=== PATIENT | male | born 1980 | race Hispanic/Latino ===

== ENCOUNTER 2017-03-17 16:01 | Emergency (ER) | payer MEDICAID, OTHER ==
[2017-03-17 16:07] VITALS: RESP 16; TEMP 98.2
--- NOTE | 2017-03-17 16:22 | ED PDOC ---
HPI: Psych/Substance Abuse Time Seen by Provider: 03/17/17 16:10 Chief Complaint (Nursing): Substance Abuse Chief Complaint (Provider): heroin use History Per: Patient History/Exam Limitations: no limitations Additional Complaint(s): 36yo male comes to the ED after taking heroin today. Patient states he fell asleep wherever he was found. Per EMS narcan was delivered intranasally. Patient has no medical complaints and requests to be discharged. Past Medical History Reviewed: Historical Data, Nursing Documentation, Vital Signs Vital Signs: Last Vital Signs Temp 98.2 F 03/17/17 16:03 Pulse 104 H 03/17/17 16:03 Resp 16 03/17/17 16:03 BP 123/89 03/17/17 16:03 Pulse Ox 100 03/17/17 16:03 - Medical History PMH: Denies: Diabetes, Hepatitis, HIV, HTN, Seizures, Sexually Transmitted Disease - Family History Family History: States: Unknown Family Hx - Living Arrangements Living Arrangements: With Family - Social History Drugs: Opiates - Home Medications Home Medications: Ambulatory Orders Medication Instructions Recorded Unobtainable [Unobtainable] 08/11/15 - Allergies Allergies/Adverse Reactions: Allergies Allergy/AdvReac Type Severity Reaction Status Date / Time shellfish derived Allergy RASH Verified 03/17/17 16:03 Review of Systems ROS Statement: Except As Marked, All Systems Reviewed And Found Negative Cardiovascular: Negative for: Chest Pain Respiratory: Negative for: Shortness of Breath Physical Exam - Reviewed Nursing Documentation Reviewed: Yes Vital Signs Reviewed: Yes - Physical Exam Appears: Positive for: Well, Non-toxic, No Acute Distress Head Exam: Positive for: ATRAUMATIC, NORMAL INSPECTION, NORMOCEPHALIC Skin: Positive for: Warm, Dry Eye Exam: Positive for: EOMI, Other (Pinpoint pupils <1mm bilaterally non reactive) Cardiovascular/Chest: Positive for: Regular Rate, Rhythm Respiratory: Positive for: Normal Breath Sounds. Negative for: Rales, Rhonchi, Wheezing Extremity: Positive for: Normal ROM Neurologic/Psych: Positive for: Gait (steady), Other ( awake, cooperative, ) - ECG O2 Sat by Pulse Oximetry: 100 (RA) Pulse Ox Interpretation: Normal Medical Decision Making Medical Decision Making: patient is awake, alert, cooperative. His gait is steady. Will d/c without further monitoring or workup Disposition - Clinical Impression Clinical Impression: Substance abuse - Patient ED Disposition Is Patient to be Admitted: No Doctor Will See Patient In The: Office Counseled Patient/Family Regarding: Diagnosis, Need For Followup - Disposition Referrals: Ramo Rivera Jr., MD [Medical Doctor] - Disposition: Routine/Home Disposition Time: 16:30 Condition: STABLE Instructions: Narcotic Abuse (ED) Print Language: [place] - POA Present On Arrival: None
[2017-03-17 16:48] VITALS: BP 132/77; PULSE 100; O2SAT 98
== END 2017-03-17 16:48 | disposition home or self-care (01) ==
LOC: H.ER 16:01
DX: F19.10 Other psychoactive substance abuse, uncomplicated (principal)

== ENCOUNTER 2017-06-08 09:35 | Observation (INO) | payer MEDICAID ==
[2017-06-08 09:42] VITALS: TEMP 96.7
[2017-06-08 09:43] VITALS: BMI 23.3
[2017-06-08] MEDS ORDERED: Sodium Chloride 0.9% 1,000 ML IV STA (10:31)
--- NOTE | 2017-06-08 10:34 | ED PDOC ---
HPI: Psych/Substance Abuse Time Seen by Provider: 06/08/17 09:46 Chief Complaint (Nursing): Substance Abuse Chief Complaint (Provider): Substance abuse History Per: Patient Additional Complaint(s): Pt is a 36 yo male, unknown PMH, presents to ED for possible substance abuse Past Medical History Reviewed: Nursing Documentation, Vital Signs Vital Signs: Last Vital Signs Temp 96.7 F L 06/08/17 09:41 Pulse 77 06/08/17 09:41 Resp 16 06/08/17 09:41 BP 108/68 06/08/17 09:41 Pulse Ox 97 06/08/17 09:41 - Medical History PMH: Denies: Diabetes, Hepatitis, HIV, HTN, Seizures, Sexually Transmitted Disease - Family History Family History: States: Unknown Family Hx - Immunization History Hx Tetanus Toxoid Vaccination: No Hx Influenza Vaccination: No Hx Pneumococcal Vaccination: No - Home Medications Home Medications: Ambulatory Orders Medication Instructions Recorded Unobtainable [Unobtainable] 08/11/15 No Known Home Med 04/13/16 - Allergies Allergies/Adverse Reactions: Allergies Allergy/AdvReac Type Severity Reaction Status Date / Time shellfish derived Allergy RASH Verified 03/17/17 16:03 SEAFOOD Allergy Uncoded 04/13/16 08:21 Review of Systems ROS Statement: Except As Marked, All Systems Reviewed And Found Negative Physical Exam - Reviewed Nursing Documentation Reviewed: Yes Vital Signs Reviewed: Yes - Physical Exam Appears: Positive for: Well, Non-toxic, No Acute Distress Head Exam: Positive for: ATRAUMATIC, NORMAL INSPECTION, NORMOCEPHALIC Skin: Positive for: Normal Color, Warm, DRY Eye Exam: Positive for: EOMI, Normal appearance, PERRL ENT: Positive for: Normal ENT Inspection Neck: Positive for: Normal, Painless ROM Cardiovascular/Chest: Positive for: Regular Rate, Rhythm Respiratory: Positive for: CNT, Normal Breath Sounds Gastrointestinal/Abdominal: Positive for: Normal Exam, Bowel Sounds, Soft Back: Positive for: Normal Inspection Extremity: Positive for: Normal ROM Neurologic/Psych: Positive for: Alert, Oriented - Laboratory Results Result Diagrams: 06/08/17 11:10 06/08/17 11:10 - ECG O2 Sat by Pulse Oximetry: 97 Medical Decision Making Medical Decision Making: EKG NSR at 75 bpm, no acute St changes, as read by ED MD UDS (+) Opiates, cocaine benzos, cannabis Disposition - Clinical Impression Clinical Impression: Drug abuse - Patient ED Disposition Is Patient to be Admitted: No - Disposition Disposition: Routine/Home Disposition Time: 16:48 Condition: STABLE - POA Present On Arrival: None
[2017-06-08 11:18] LABS: BASO % 0.5 % (0.0-2.0); EOS # 0.2 K/uL (0.0-0.7); EOS % 2.5 % (0.0-4.0); HEMOGLOBIN 14.4 g/dL (12.0-18.0); LYMPH % 30.5 % (20.0-40.0); MEAN CELL VOLUME 88.3 fl (80.0-94.0); MEAN CORPUSCULAR HEMOGLOBIN 28.9 pg (27.0-31.0); MEAN CORPUSCULAR HGB CONC 32.8 g/dL (33.0-37.0); MEAN PLATELET VOLUME 8.7 fl (7.2-11.7); MONO % 9.8 % (0.0-10.0); NEUT # 5.6 K/uL (1.8-7.0); NEUT % 56.7 % (50.0-75.0); RBC 4.96 Mil/uL (4.40-5.90); RED CELL DISTRIBUTION WIDTH 13.9 % (11.5-14.5); WHITE BLOOD COUNT 9.8 K/uL (4.8-10.8)
[2017-06-08 11:31] LABS: ALB/GLOB RATIO 1.2 (1.0-2.1); ALBUMIN 4.2 g/dL (3.5-5.0); ALT/SGPT 98 U/L (21-72); AST/SGOT 51 U/L (17-59); BLOOD UREA NITROGEN 12 mg/dl (9-20); CALCIUM 9.2 mg/dL (8.4-10.2); GFR AFRICAN-AMERICAN > 60; GFR NON-AFRICAN AMERICAN > 60
[2017-06-08 11:58] LABS: SALICYLATE < 1.0 mg/dl
[2017-06-08 12:01] LABS: ACETAMINOPHEN < 10.0 ug/ml (10.0-30.0)
--- NOTE | 2017-06-08 15:08 | CARD ---
APPROVED REPORT EKG Measurement Heart [id number] [id number] <Conclusion> Normal sinus rhythm Normal ECG
[2017-06-08 16:47] VITALS: RESP 18
[2017-06-08 19:00] VITALS: BP 128/73; PULSE 88
[2017-06-08 19:16] LABS: BARBITURATES, UR NEGATIVE (NEGATIVE); BENZODIAZEPINES, UR POSITIVE (NEGATIVE); OPIATES, UR POSITIVE (NEGATIVE); PHENCYCLIDINE, UR NEGATIVE (NEGATIVE)
[2017-06-09 16:48] VITALS: O2SAT 97
== END 2017-06-08 19:00 | disposition home or self-care (01) ==
LOC: H.ER 09:35 → H.EROBSV 10:31
PROVIDERS: ADMIT Emergency Medicine; ATTEND Emergency Medicine
DX: F19.10 Other psychoactive substance abuse, uncomplicated (principal)

== ENCOUNTER 2017-12-07 11:24 | Emergency (ER) | payer MEDICAID ==
[2017-12-07 11:26] VITALS: BMI 25.8
--- NOTE | 2017-12-07 12:04 | ED PDOC ---
HPI: Psych/Substance Abuse Time Seen by Provider: 12/07/17 11:35 Chief Complaint (Nursing): Substance Abuse Chief Complaint (Provider): Substance Abuse ED Caveat: Intoxicated, Uncooperative History Per: EMS History/Exam Limitations: intoxication Onset/Duration Of Symptoms: Mins (prior to arrival) Current Symptoms Are (Timing): Still Present Additional Complaint(s): 37 year old male who presents to the emergency department via EMS for an evaluation of substance abuse after admitting to using heroin today. Unable to obtain any medical history due to patient's refusal to answer questions but denied any suicidal or homicidal ideation. PMD: none provided Past Medical History Reviewed: Nursing Documentation, Vital Signs, Unable To Obtain (intoxication) Vital Signs: Last Vital Signs Temp 98.7 F 12/07/17 11:26 Pulse 99 H 12/07/17 11:26 Resp 18 12/07/17 11:26 BP 112/78 12/07/17 11:26 Pulse Ox 100 12/07/17 11:26 - Medical History PMH: Denies: Diabetes, Hepatitis, HIV, HTN, Seizures, Sexually Transmitted Disease - Family History Family History: States: Unknown Family Hx - Social History Drugs: Other (heroin) - Immunization History Hx Tetanus Toxoid Vaccination: No Hx Influenza Vaccination: No Hx Pneumococcal Vaccination: No - Home Medications Home Medications: Ambulatory Orders Medication Instructions Recorded Unobtainable [Unobtainable] 08/11/15 No Known Home Med 04/13/16 - Allergies Allergies/Adverse Reactions: Allergies Allergy/AdvReac Type Severity Reaction Status Date / Time shellfish derived Allergy RASH Verified 03/17/17 16:03 SEAFOOD Allergy Uncoded 04/13/16 08:21 Review of Systems Review Of Systems: ROS cannot be obtained secondary to pt's inabilty to answer questions. (substance intoxication) Physical Exam - Reviewed Nursing Documentation Reviewed: Yes Vital Signs Reviewed: Yes - Physical Exam Appears: Positive for: No Acute Distress Head Exam: Positive for: ATRAUMATIC, NORMAL INSPECTION, NORMOCEPHALIC Skin: Positive for: Normal Color Eye Exam: Positive for: Normal appearance, EOMI, PERRL. Negative for: Nystagmus Neck: Positive for: Normal, Painless ROM, Supple. Negative for: Decreased ROM Cardiovascular/Chest: Positive for: Regular Rate, Rhythm, Chest Non Tender Respiratory: Positive for: Normal Breath Sounds. Negative for: Decreased Breath Sounds, Wheezing, Respiratory Distress Back: Positive for: Normal Inspection. Negative for: L CVA Tenderness, R CVA Tenderness Extremity: Positive for: Normal ROM (upper/lower). Negative for: Pedal Edema ( bilateral) Neurologic/Psych: Positive for: Alert, commercial producer II-XII (intact), Mood/Affect ( anxious and agitiated). Negative for: Motor/Sensory Deficits - Laboratory Results Result Diagrams: 12/07/17 12:39 12/07/17 12:39 - ECG O2 Sat by Pulse Oximetry: 100 (RA) Pulse Ox Interpretation: Normal - Progress ED Course And Treament: pt is comfortable on monitor has a 1:1 pt is medically cleared for crisis eval. Re-evaluation Time: 17:13 Condition: Improved Medical Decision Making Medical Decision Making: Initial Impression: EDP; substance abuse Initial Plan: * EKG * Acetaminophen * Alcohol serum * CMP * CPK * Drug screen, urine * Salicylate * Crisis evaluation * CBC * Ativan 2mg IM * Haldol 5mg IM * Restraints * Urinalysis ____ Time: 1140 --Patient is agitated and anxious upon arrival to ED, requiring restraints. Scribe Attestation: Documented by Riri Frank, acting as a scribe for Chu Curry MD. Provider Scribe Attestation: All medical record entries made by the Scribe were at my direction and personally dictated by me. I have reviewed the chart and agree that the record accurately reflects my personal performance of the history, physical exam, medical decision making, and the department course for this patient. I have also personally directed, reviewed, and agree with the discharge instructions and disposition. Disposition - Clinical Impression Clinical Impression: Substance abuse - Patient ED Disposition Is Patient to be Admitted: Transfer of Care Counseled Patient/Family Regarding: Studies Performed, Diagnosis - Disposition Disposition: Transfer of Care Disposition Time: 17:14 Condition: STABLE Forms: [email or web address] (Serbian) Patient Signed Over To: Tameka Blank
[2017-12-07 13:13] LABS: BASO % 0.4 % (0.0-2.0); EOS # 0.3 K/uL (0.0-0.7); EOS % 3.2 % (0.0-4.0); HEMOGLOBIN 15.1 g/dL (12.0-18.0); LYMPH # 2.4 K/uL (1.0-4.3); LYMPH % 23.7 % (20.0-40.0); MEAN CELL VOLUME 86.4 fl (80.0-94.0); MEAN CORPUSCULAR HEMOGLOBIN 28.8 pg (27.0-31.0); MEAN CORPUSCULAR HGB CONC 33.3 g/dL (33.0-37.0); MEAN PLATELET VOLUME 8.1 fl (7.2-11.7); MONO # 1.3 K/uL (0.0-0.8); MONO % 12.5 % (0.0-10.0); NEUT # 6.1 K/uL (1.8-7.0); NEUT % 60.2 % (50.0-75.0); NRBC % 0.1 % (0.0-0.0); RBC 5.26 Mil/uL (4.40-5.90); WHITE BLOOD COUNT 10.1 K/uL (4.8-10.8)
[2017-12-07 13:23] LABS: ALBUMIN 4.5 g/dL (3.5-5.0); ALT/SGPT 62 U/L (21-72); AST/SGOT 59 U/L (17-59); BLOOD UREA NITROGEN 13 mg/dl (9-20); CALCIUM 9.3 mg/dL (8.4-10.2); GFR AFRICAN-AMERICAN > 60; GFR NON-AFRICAN AMERICAN > 60
[2017-12-07 13:34] LABS: ALB/GLOB RATIO 1.2 (1.0-2.1)
[2017-12-07 13:37] LABS: ACETAMINOPHEN < 10.0 ug/ml (10.0-30.0); SALICYLATE < 1.0 mg/dl
--- NOTE | 2017-12-07 17:07 | ED PDOC ---
- Laboratory Results Result Diagrams: 12/07/17 12:39 12/07/17 12:39 - ECG O2 Sat by Pulse Oximetry: 100 (RA) Pulse Ox Interpretation: Normal Medical Decision Making Medical Decision Making: Time: 1699 --Patient endorsed from dr. Curry to me. --Pending clinical sobriety, reassessment, and final disposition. Time: 1806 --Patient is resting comfortably and still pending clinical sobriety. Time: 2055 --Patient is resting comfortably and still pending clinical sobriety. Time: 2229 --Patient is resting comfortably and still pending clinical sobriety. Scribe Attestation: Documented by Yoly Murray, acting as a scribe for Tameka Blank MD. Provider Scribe Attestation: All medical record entries made by the Scribe were at my direction and personally dictated by me. I have reviewed the chart and agree that the record accurately reflects my personal performance of the history, physical exam, medical decision making, and the department course for this patient. I have also personally directed, reviewed, and agree with the discharge instructions and disposition. Disposition - Clinical Impression Clinical Impression: Substance abuse - POA Present On Arrival: None - Disposition Disposition: Transfer of Care Disposition Time: 00:00 Condition: STABLE Patient Signed Over To: Migdalia Sanchez Handoff Comments: Pending sobriety reassessment final ER disposition
--- NOTE | 2017-12-08 00:06 | ED PDOC ---
- Laboratory Results Result Diagrams: 12/07/17 12:39 12/07/17 12:39 - ECG O2 Sat by Pulse Oximetry: 100 (RA) Medical Decision Making Medical Decision Makin Patient signed out to me from Dr. Blank pending sobriety. 0330 Upon re-evaluation, patient is awake, alert, and oriented x3. Patient is walking with a steady gait and does not have slurred speech. Patient is stable for discharge. Dx: polysubstance abuse Scribe Attestation: Documented by Margaret Kwan acting as a scribe for Migdalia Sanchez MD. Scribe Attestation: All medical record entries made by the Scribe were at my direction and personally dictated by me. I have reviewed the chart and agree that the record accurately reflects my personal performance of the history, physical exam, medical decision making, and the department course for this patient. I have also personally directed, reviewed, and agree with the discharge instructions and disposition. Disposition Counseled Patient/Family Regarding: Studies Performed, Diagnosis, Need For Followup - Clinical Impression Clinical Impression: Substance abuse - POA Present On Arrival: None - Disposition Referrals: [facility] [Outside] [facility] [Outside] Disposition: Routine/Home Disposition Time: 03:10 Condition: IMPROVED Additional Instructions: follow up with your primary doctor in 1-2 days return to the ED with any worsening or concerning symptoms Instructions: Polysubstance Abuse (ED) Forms: [employer] (Bermudian)
[2017-12-08 00:40] VITALS: TEMP 98
[2017-12-08 01:32] VITALS: BP 100/53; PULSE 96; RESP 14
[2017-12-08 02:33] LABS: URINE BILIRUBIN NEGATIVE (NEGATIVE); URINE BLOOD MODERATE (NEGATIVE); URINE CLARITY CLOUDY (Clear); URINE COLOR YELLOW (YELLOW); URINE GLUCOSE (UA) NEG (Normal); URINE HYALINE CAST 0-2 /hpf (0-2); URINE LEUKOCYTE ESTERASE NEG Leu/uL (Negative); URINE NITRATE NEGATIVE (NEGATIVE); URINE PROTEIN 30 mg/dL (NEGATIVE)
[2017-12-08 02:52] LABS: BARBITURATES, UR NEGATIVE (NEGATIVE); PHENCYCLIDINE, UR NEGATIVE (NEGATIVE)
[2017-12-08 02:53] LABS: BENZODIAZEPINES, UR POSITIVE (NEGATIVE); OPIATES, UR POSITIVE (NEGATIVE)
[2017-12-08 03:44] VITALS: O2SAT 100
--- NOTE | 2017-12-08 11:05 | CARD ---
APPROVED REPORT EKG Measurement Heart [id number] ME 130P65 [id number] <Conclusion> Normal sinus rhythm Early repolarization Normal ECG
== END 2017-12-08 03:51 | disposition home or self-care (01) ==
LOC: H.ER 11:24
DX: F11.20 Opioid dependence, uncomplicated (principal)
CPT/HCPCS: 80053; 80320; 80324; 80329; 80345; 80346; 80349; 80353; 80358; 80361; 81003; 82550; 83992; 85025; 93005; 96372; 99284; J1630; J2060

== ENCOUNTER 2019-01-07 14:37 | Emergency (ER) | payer MEDICAID ==
[2019-01-07 14:37] VITALS: BMI 25.8
[2019-01-07 14:40] VITALS: TEMP 98
[2019-01-07 14:59] VITALS: BP 122/83; PULSE 82; RESP 16; O2SAT 99
--- NOTE | 2019-01-07 15:29 | ED PDOC ---
HPI: Psych/Substance Abuse Time Seen by Provider: 01/07/19 14:54 Chief Complaint (Nursing): Substance Abuse Chief Complaint (Provider): Substance Abuse History Per: Patient, EMS History/Exam Limitations: no limitations Onset/Duration Of Symptoms: Hrs (ADVERTISING DIRECTOR) Modifying Factor(s): Narcotics (Heroin) Additional Complaint(s): 38 y/o male is a known recreational drug user who was brought to the ED for substance abuse. Patient was found using publicly using 2 bags of heroin; he is a regular user of many years. He snorted 2 bags of heroin. Ambulance found patient lethargic and administered 2 doses of Narcan and he woke up. Patient is awake and oriented on arrival to ED, no need for any intoxication caveats. Past Medical History Reviewed: Historical Data, Nursing Documentation, Vital Signs Vital Signs: Last Vital Signs Temp 98.0 F 01/07/19 14:39 Pulse 82 01/07/19 14:59 Resp 16 01/07/19 14:59 BP 122/83 01/07/19 14:59 Pulse Ox 99 01/07/19 14:59 - Medical History PMH: Gastritis, Migraine Denies: Colonic Polyps, Diabetes, Hepatitis, HIV, HTN, Chronic Kidney Disease, Seizures, Sexually Transmitted Disease - Surgical History Surgical History: No Surg Hx - Family History Family History: States: Unknown Family Hx - Social History Drugs: Opiates (Heroin) - Immunization History Hx Tetanus Toxoid Vaccination: No Hx Influenza Vaccination: No Hx Pneumococcal Vaccination: No - Home Medications Home Medications: Ambulatory Orders Medication Instructions Recorded Ibuprofen [Motrin Tab] 1 tab PO PRN PRN 03/29/18 RX: Multivitamin [Multivitamins] 1 tab PO DAILY 03/29/18 RX: Omeprazole 1 tab PO DAILY 03/29/18 Ascorbic Acid [Vitamin C 500 mg 500 mg PO BID 03/30/18 Tab] Cholecalciferol (Vitamin D3) 2,000 iu PO DAILY 03/30/18 [Vitamin D3] Zolpidem [Ambien] 10 mg PO HS 03/30/18 - Allergies Allergies/Adverse Reactions: Allergies Allergy/AdvReac Type Severity Reaction Status Date / Time iodine Allergy SWELLING Verified 03/30/18 08:19 shellfish derived Allergy RASH Verified 03/30/18 08:19 SEAFOOD Allergy SWELLING Uncoded 03/29/18 13:24 Review of Systems ROS Statement: Except As Marked, All Systems Reviewed And Found Negative Psych: Positive for: Other (substance abuse) Physical Exam - Reviewed Nursing Documentation Reviewed: Yes Vital Signs Reviewed: Yes - Physical Exam Appears: Positive for: Well, Non-toxic, No Acute Distress Head Exam: Positive for: ATRAUMATIC, NORMAL INSPECTION, NORMOCEPHALIC Skin: Positive for: Normal Color, Warm, DRY Eye Exam: Positive for: EOMI, Normal appearance, PERRL Neck: Positive for: Normal, Painless ROM Cardiovascular/Chest: Positive for: Regular Rate, Rhythm Respiratory: Positive for: Normal Breath Sounds. Negative for: Respiratory Distress Gastrointestinal/Abdominal: Positive for: Normal Exam, Soft. Negative for: Tenderness Extremity: Positive for: Normal ROM Neurologic/Psych: Positive for: Alert, Oriented, Gait (steady) - ECG O2 Sat by Pulse Oximetry: 99 (RA) Pulse Ox Interpretation: Normal Medical Decision Making Medical Decision Making: Time: 14:54 Initial Impression: substance abuse Initial Plan: Patient is medically cleared and stable for discharge. Scribe Attestation: Documented by David Howard, acting as a scribe for Juan Jones MD. Provider Scribe Attestation: All medical record entries made by the Scribe were at my direction and personally dictated by me. I have reviewed the chart and agree that the record accurately reflects my personal performance of the history, physical exam, medical decision making, and the department course for this patient. I have also personally directed, reviewed, and agree with the discharge instructions and d isposition. Disposition - Clinical Impression Clinical Impression: Substance abuse Doctor Will See Patient In The: Office Counseled Patient/Family Regarding: Studies Performed, Diagnosis, Need For Followup - Disposition Referrals: [facility] [Outside] Disposition: Routine/Home Disposition Time: 15:00 Condition: GOOD Additional Instructions: DORENE HANSEN, thank you for letting us take care of you today. Your provider was Juan Jones MD and you were treated for POSS SUBSTANCE ABUSE. The emergency medical care you received today was directed at your acute symptoms. If you were prescribed any medication, please fill it and take as directed. It may take several days for your symptoms to resolve. Return to the Emergency Department if your symptoms worsen, do not improve, or if you have any other problems. Please contact your doctor or call one of the physicians/clinics you have been referred to that are listed on the Patient Visit Information form that is included in your discharge packet. Bring any paperwork you were given at discharge with you along with any medications you are taking to your follow up visit. Our treatment cannot replace ongoing medical care by a primary care provider outside of the emergency department. Thank you for allowing the [facility] team to be part of your care today. If you had an X-Ray or CT scan: A Radiologist will review the ED reading if any change in treatment is needed we will contact you. If you had a blood, urine, or wound culture: It will take several days for the results, if any change in treatment is needed we will contact you. If you had an STI test: It will take 48 hours for the results. Please call after 1 week if you have not heard back. Instructions: Drug Abuse and Drug Addiction (DC)
--- NOTE | 2019-01-07 15:31 | ED PDOC ---
HPI: Psych/Substance Abuse Time Seen by Provider: 01/07/19 14:54 Chief Complaint (Nursing): Substance Abuse Past Medical History Vital Signs: Last Vital Signs Temp 98.0 F 01/07/19 14:39 Pulse 82 01/07/19 14:59 Resp 16 01/07/19 14:59 BP 122/83 01/07/19 14:59 Pulse Ox 99 01/07/19 14:59 - Medical History PMH: Gastritis, Migraine Denies: Colonic Polyps, Diabetes, Hepatitis, HIV, HTN, Chronic Kidney Disease, Seizures, Sexually Transmitted Disease - Family History Family History: States: Unknown Family Hx - Immunization History Hx Tetanus Toxoid Vaccination: No Hx Influenza Vaccination: No Hx Pneumococcal Vaccination: No - Home Medications Home Medications: Ambulatory Orders Medication Instructions Recorded Ibuprofen [Motrin Tab] 1 tab PO PRN PRN 03/29/18 Multivitamin [Multivitamins] 1 tab PO DAILY 03/29/18 Omeprazole 1 tab PO DAILY 03/29/18 Ascorbic Acid [Vitamin C 500 mg 500 mg PO BID 03/30/18 Tab] Cholecalciferol (Vitamin D3) 2,000 iu PO DAILY 03/30/18 [Vitamin D3] Zolpidem [Ambien] 10 mg PO HS 03/30/18 - Allergies Allergies/Adverse Reactions: Allergies Allergy/AdvReac Type Severity Reaction Status Date / Time iodine Allergy SWELLING Verified 03/30/18 08:19 shellfish derived Allergy RASH Verified 03/30/18 08:19 SEAFOOD Allergy SWELLING Uncoded 03/29/18 13:24 - ECG O2 Sat by Pulse Oximetry: 99 Disposition - Clinical Impression Clinical Impression: Substance abuse - Disposition Referrals: [facility] [Outside] Condition: GOOD Additional Instructions: DORENE HANSEN, thank you for letting us take care of you today. Your provider was Juan Jones MD and you were treated for POSS SUBSTANCE ABUSE. The emergency medical care you received today was directed at your acute symptoms. If you were prescribed any medication, please fill it and take as directed. It may take several days for your symptoms to resolve. Return to the Emergency Department if your symptoms worsen, do not improve, or if you have any other problems. Please contact your doctor or call one of the physicians/clinics you have been referred to that are listed on the Patient Visit Information form that is included in your discharge packet. Bring any paperwork you were given at discharge with you along with any medications you are taking to your follow up visit. Our treatment cannot replace ongoing medical care by a primary care provider outside of the emergency department. Thank you for allowing the [facility] team to be part of your care today. If you had an X-Ray or CT scan: A Radiologist will review the ED reading if any change in treatment is needed we will contact you. If you had a blood, urine, or wound culture: It will take several days for the results, if any change in treatment is needed we will contact you. If you had an STI test: It will take 48 hours for the results. Please call after 1 week if you have not heard back. Instructions: Drug Abuse and Drug Addiction (DC)
== END 2019-01-07 15:18 | disposition home or self-care (01) ==
LOC: H.ER 14:37
DX: F19.10 Other psychoactive substance abuse, uncomplicated (principal)

== ENCOUNTER 2019-02-23 18:39 | Emergency (ER) | payer MEDICAID ==
[2019-02-23 18:39] VITALS: BMI 25.8
[2019-02-23 19:39] VITALS: BP 121/84; PULSE 90; RESP 22; TEMP 98.1; O2SAT 99
--- NOTE | 2019-02-23 19:57 | ED PDOC ---
HPI: Psych/Substance Abuse Time Seen by Provider: 02/23/19 19:24 Chief Complaint (Nursing): Substance Abuse Chief Complaint (Provider): Substance Abuse History Per: Patient, Ginseng Farmer (Certified Phone Technician, DIAMOND burnham Ewelinaafia Meier) History/Exam Limitations: no limitations Additional Complaint(s): 38 y/o male, with a history of drug abuse, presents to the ED stating he used 1 bag of heroine that he snorted. Patient reports he doesn't remember anything after that. He states he is feeling fine currently. He received intranasal Narcan in the field with good response. He states he drank alcohol today. De nies taking any other drugs. He states he feels fine and has no complaints of suicidal ideation or thoughts and denies all injuries. Patient states he wants to go home. PMD: none Past Medical History Reviewed: Historical Data, Nursing Documentation, Vital Signs Vital Signs: Last Vital Signs Temp 98.1 F 02/23/19 19:37 Pulse 90 02/23/19 19:37 Resp 22 02/23/19 19:37 BP 121/84 02/23/19 19:37 Pulse Ox 99 02/23/19 19:37 - Medical History PMH: Gastritis, Migraine Denies: Colonic Polyps, Diabetes, Hepatitis, HIV, HTN, Chronic Kidney Disease, Seizures, Sexually Transmitted Disease - Surgical History Surgical History: No Surg Hx - Family History Family History: States: Unknown Family Hx - Social History Current smoker - smoking cessation education provided: Yes Alcohol: Social Drugs: Other (drug abuse) - Immunization History Hx Tetanus Toxoid Vaccination: No Hx Influenza Vaccination: No Hx Pneumococcal Vaccination: No - Home Medications Home Medications: Ambulatory Orders Medication Instructions Recorded Ibuprofen [Motrin Tab] 1 tab PO PRN PRN 03/29/18 Multivitamin [Multivitamins] 1 tab PO DAILY 03/29/18 Omeprazole 1 tab PO DAILY 03/29/18 Ascorbic Acid [Vitamin C 500 mg 500 mg PO BID 03/30/18 Tab] Cholecalciferol (Vitamin D3) 2,000 iu PO DAILY 03/30/18 [Vitamin D3] Zolpidem [Ambien] 10 mg PO HS 03/30/18 Naloxone HCl [Narcan] 4 mg NS PRN PRN #2 spray 02/23/19 - Allergies Allergies/Adverse Reactions: Allergies Allergy/AdvReac Type Severity Reaction Status Date / Time iodine Allergy SWELLING Verified 03/30/18 08:19 shellfish derived Allergy RASH Verified 03/30/18 08:19 SEAFOOD Allergy SWELLING Uncoded 03/29/18 13:24 Review of Systems ROS Statement: Except As Marked, All Systems Reviewed And Found Negative Psych: Negative for: Suicidal ideation (or plan) Physical Exam - Reviewed Nursing Documentation Reviewed: Yes Vital Signs Reviewed: Yes - Physical Exam Appears: Positive for: Non-toxic, No Acute Distress Head Exam: Positive for: ATRAUMATIC, NORMOCEPHALIC Skin: Positive for: Normal Color, Warm, Dry Eye Exam: Positive for: Other (Pupils are 2mm) ENT: Positive for: Normal ENT Inspection Neck: Positive for: Normal, Painless ROM Cardiovascular/Chest: Positive for: Regular Rate, Rhythm Respiratory: Positive for: Normal Breath Sounds. Negative for: Wheezing, Respiratory Distress Gastrointestinal/Abdominal: Positive for: Normal Exam, Soft. Negative for: Tenderness Extremity: Positive for: Normal ROM Neurological/Psych: Positive for: Awake, Alert, Normal Tone, Oriented, parboiler II- XII. Negative for: Gait, Motor/Sensory Deficits - ECG O2 Sat by Pulse Oximetry: 99 (RA) Pulse Ox Interpretation: Normal Medical Decision Making Medical Decision Making: Initial Impression: 38 y/o patient presenting s/p heroine overdose. Initial Plan: --Glucose Patient was observed for more than an hour. He has no respiratory depressions, no signs of trauma, and normal vital signs. Patient was able to ambulate around the ER normally without assistance and is stable for discharge home. Scribe Attestation: Documented by Jake Marte acting as a scribe for Brendon Chinchilla MD. Provider Scribe Attestation: All medical record entries made by the Scribe were at my direction and personally dictated by me. I have reviewed the chart and agree that the record accurately reflects my personal performance of the history, physical exam, medical decision making, and the department course for this patient. I have also personally directed, reviewed, and agree with the discharge instructions and disposition. Disposition - Clinical Impression Clinical Impression: Heroin abuse - Disposition Disposition: Routine/Home Disposition Time: 19:50 Condition: GOOD Prescriptions: Naloxone HCl [Narcan] 4 mg NS PRN PRN #2 spray PRN Reason: Overdose Instructions: Opioid Use Disorder Forms: [facility] (Northern Irish) Print Language: [id number]
== END 2019-02-23 19:40 | disposition home or self-care (01) ==
LOC: H.ER 18:39
DX: F11.10 Opioid abuse, uncomplicated (principal); F17.200 Nicotine dependence, unspecified, uncomplicated; F19.11 Other psychoactive substance abuse, in remission